=== PATIENT | male | born 1975 | race African-American/Black ===

== ENCOUNTER 2024-06-11 12:01 | Inpatient (IN) | payer MEDICAID ==
[~2024-06-11] VITALS: Ht 190.5 cm; Wt 143.8 kg
[~2024-06-11 12:01] MED LIST: APIXABAN 5 MG TABLET PO SCH
[2024-06-11 12:44] LABS: BASOPHILS % 0.4 % (0.0-2.0); EOSINOPHILS % 2.8 % (0.0-5.0); HEMATOCRIT. 42.7 % (42.0-52.0); HEMOGLOBIN. 14.2 g/dL (14.0-18.0); LYMPHOCYTES % 12.3 % (20.0-50.0); MEAN CORPUSCULAR HEMOGLOBIN 29.5 pg (28.0-32.0); MEAN CORPUSCULAR HGB CONC 33.2 g/dL (31.0-37.0); MEAN CORPUSCULAR VOLUME 88.8 fL (80.0-94.0); MEAN PLATELET VOLUME 8.8 fl (7.4-10.4); MONOCYTES % 7.2 % (2.0-8.0); NEUTROPHILS % 77.3 % (40.0-76.0); PLATELET 153 x1000/uL (130-400); RED BLOOD CELL COUNT 4.81 mill/uL (4.7-6.1); RED CELL DISTRIBUTION WIDTH 13.9 % (11.6-14.6); WHITE BLOOD COUNT 9.4 x1000/uL (4.5-11.0)
[2024-06-11 12:53] LABS: CHLORIDE 105 mEq/L (98-107); POTASSIUM 4.6 mEq/L (3.5-5.1); SODIUM 138 mEq/L (136-145)
[2024-06-11 12:54] LABS: CALCIUM 9.2 mg/dL (8.7-10.4); CARBON DIOXIDE 25 mEq/L (21-32)
[2024-06-11 12:59] LABS: CREATININE 1.4 mg/dL (0.6-1.3); GLUCOSE 118 mg/dL (70-105); UREA NITROGEN BLOOD 11 mg/dL (9-23)
[2024-06-11 13:01] LABS: D-DIMER 20.91 mg/L FEU (<0.50); INR 1.1; PARTIAL THROMBOPLASTIN TIME 28.5 sec (23.4-31.0); PROTHROMBIN TIME 11.8 sec (9.6-11.0)
[2024-06-11 14:04] LABS: TROPONIN I HIGH SENSITIVITY 75 ng/L (3.0-53)
[2024-06-11] MEDS: SODIUM CHLORIDE 0.9% 1,000 ML IV ONE (15:04)
[2024-06-11] MEDS: HEPARIN 25,000 UNITS PREMIX 250 ML IV STA (15:34)
[2024-06-11] MEDS ORDERED: HEPARIN 5000 UNITS/ML VIAL IV ONE (15:45)
[2024-06-11] MEDS: HEPARIN 5000 UNITS/ML VIAL IV ONE (15:57)
[2024-06-11] MEDS ORDERED: HEPARIN BOLUS PRN aPTT 37-44 IV ×2 (16:00→23:00)
[2024-06-11] MEDS ORDERED: HEPARIN 80 UNITS/KG BOLUS IV SCH (16:00)
[2024-06-11] MEDS ORDERED: HEPARIN 25,000 UNITS PREMIX 250 ML IV SCH (16:00)
[2024-06-11] MEDS ORDERED: HEPARIN BOLUS PRN aPTT <36 IV ×2 (16:00→23:00)
[2024-06-11] MEDS: HEPARIN 80 UNITS/KG BOLUS IV NR (16:04)
[2024-06-11] MEDS: HEPARIN 25,000 UNITS PREMIX 250 ML IV PRN (17:01)
[2024-06-11] MEDS ORDERED: IODIXANOL 320 MG/ML 150ML BOTTLE IV ONE (17:13)
[2024-06-11] MEDS ORDERED: FENTANYL CITRATE/PF 50MCG/ML 2ML VIAL ONE (17:13)
[2024-06-11] MEDS ORDERED: MIDAZOLAM HCL 2 MG/2 ML VIAL ONE (17:14)
[2024-06-11] MEDS ORDERED: HEPARIN 1000 UNITS/ML 10ML ONE (17:14)
[2024-06-11] MEDS ORDERED: LIDOCAINE HCL 1% 20ML VIAL ONE (17:14)
[2024-06-11] MEDS ORDERED: ATROPINE SULFATE 1MG/10ML SYR IV PRN (17:45)
[2024-06-11] MEDS ORDERED: ACETAMINOPHEN 325MG TABLET PO PRN ×2 (17:45→19:15)
[2024-06-11] MEDS ORDERED: IODIXANOL 320MG/ML 100 ML BOTTLE IV ONE (18:06)
[2024-06-11 18:59] VITALS: BP 126/87; PULSE 90; RESP 22; TEMP 36.5; O2SAT 94
[2024-06-11] MEDS ORDERED: ACETAMINOPHEN 650MG/20.3ML UDC GT PRN (19:15)
[2024-06-11] MEDS ORDERED: ONDANSETRON HCL 4MG/2ML INJ IV PRN (19:15)
[2024-06-11 20:00] VITALS: BP 128/89; PULSE 90; RESP 18; TEMP 36.6; O2SAT 94
[2024-06-11] MEDS: PANTOPRAZOLE 40MG DR TABLET PO SCH (20:46)
[2024-06-11] MEDS: ENOXAPARIN 150MG/ML SYR SUBCUT SCH (20:49)
[2024-06-11 22:49] VITALS: BP 130/79; PULSE 98; RESP 30; TEMP 36.6
[2024-06-11] MEDS ORDERED: IOHEXOL-350 100 ML BOTTLE ONE (23:49)
[2024-06-12] VITALS: BP 129/71; PULSE 93; RESP 17; TEMP 37; O2SAT 100
[2024-06-12 04:00] VITALS: BP 113/71; PULSE 86; RESP 23; TEMP 37.1; O2SAT 97
[2024-06-12 07:42] LABS: CARBON DIOXIDE 25 mEq/L (21-32); CHLORIDE 105 mEq/L (98-107); POTASSIUM 4.2 mEq/L (3.5-5.1); SODIUM 137 mEq/L (136-145)
[2024-06-12 07:43] LABS: CALCIUM 8.8 mg/dL (8.7-10.4)
[2024-06-12 07:48] LABS: CREATININE 1.3 mg/dL (0.6-1.3); GLUCOSE 108 mg/dL (70-105); UREA NITROGEN BLOOD 12 mg/dL (9-23)
[2024-06-12 07:51] LABS: BASOPHILS % 1.1 % (0.0-2.0); DIFFERENTIAL COMMENT 0; EOSINOPHILS % 5.9 % (0.0-5.0); HEMOGLOBIN. 12.7 g/dL (14.0-18.0); MEAN CORPUSCULAR HEMOGLOBIN 29.3 pg (28.0-32.0); MEAN CORPUSCULAR HGB CONC 33.4 g/dL (31.0-37.0); MEAN CORPUSCULAR VOLUME 87.8 fL (80.0-94.0); MEAN PLATELET VOLUME 9.7 fl (7.4-10.4); MONOCYTES % 8.6 % (2.0-8.0); NEUTROPHILS % 62.4 % (40.0-76.0); PLATELET 146 x1000/uL (130-400); RED BLOOD CELL COUNT 4.33 mill/uL (4.7-6.1)
[2024-06-12 08:00] VITALS: BP 115/86; PULSE 81; RESP 14; TEMP 36.8; O2SAT 97
[2024-06-12 12:00] VITALS: BP 128/94; PULSE 89; RESP 25; TEMP 36.6; O2SAT 95
[2024-06-12 16:00] VITALS: BP 104/65; PULSE 84; RESP 24; TEMP 36.7; O2SAT 97
[2024-06-12 20:17] VITALS: BP 122/69; PULSE 90; RESP 20; TEMP 36.8; O2SAT 97
[2024-06-13] VITALS (7 sets, daily range): BP systolic 108–131; BP diastolic 72–99; PULSE 84–103; RESP 20–29; TEMP 36.2–36.9; O2SAT 95–99
[2024-06-13] MEDS ORDERED: APIX5TAB MT (10:37)
== END 2024-06-13 15:00 | disposition home or self-care (01) | DRG 192 ==
LOC: ER 12:31 → 3WST 15:39 → EDBEDREQ 15:49
PROVIDERS: ADMIT Internal Medicine; ATTEND Internal Medicine
PROC: 02CR3ZZ Extirpation of Matter from Left Pulmonary Artery, Percutaneous Approach (ICD-10-PCS; principal; 2024-06-11)
PROC: 02CQ3ZZ Extirpation of Matter from Right Pulmonary Artery, Percutaneous Approach (ICD-10-PCS; 2024-06-11)
PROC: 02CP3ZZ Extirpation of Matter from Pulmonary Trunk, Percutaneous Approach (ICD-10-PCS; 2024-06-11)
PROC: B31TYZZ Fluoroscopy of Left Pulmonary Artery using Other Contrast (ICD-10-PCS; 2024-06-11)
PROC: B31UYZZ Fluoroscopy of Pulmonary Trunk using Other Contrast (ICD-10-PCS; 2024-06-11)
PROC: B31SYZZ Fluoroscopy of Right Pulmonary Artery using Other Contrast (ICD-10-PCS; 2024-06-11)
PROC: 4A023N6 Measurement of Cardiac Sampling and Pressure, Right Heart, Percutaneous Approach (ICD-10-PCS; 2024-06-11)
PROC: B519YZZ Fluoroscopy of Inferior Vena Cava using Other Contrast (ICD-10-PCS; 2024-06-11)
PROC: B51FYZZ Fluoroscopy of Right Pelvic (Iliac) Veins using Other Contrast (ICD-10-PCS; 2024-06-11)
PROC: B51BYZZ Fluoroscopy of Right Lower Extremity Veins using Other Contrast (ICD-10-PCS; 2024-06-11)
DX: I82.432 Acute embolism and thrombosis of left popliteal vein (principal); I26.09 Other pulmonary embolism with acute cor pulmonale; J96.01 Acute respiratory failure with hypoxia; I82.412 Acute embolism and thrombosis of left femoral vein; Z79.01 Long term (current) use of anticoagulants
CPT/HCPCS: 36415; 37184; 37185; 71045; 71275; 75743; 80048; 83880; 84484; 85025; 85347; 85379; 93005; 93306; 93970; 99291; A4606; A4663; C1766; C1769; C1887; C1893; J1644; J1650; J2250; J3010; J3490; J7030; Q9967; C1757